=== PATIENT | male | born 1990 | race Caucasian/White ===

== ENCOUNTER 2016-07-31 12:27 | Emergency (ER) | payer OTHER ==
[~2016-07-31] VITALS: Ht 175.3 cm; Wt 88.1 kg
[2016-07-31 12:41] VITALS: BP 117/74; PULSE 68; RESP 16; O2SAT 99
--- NOTE | 2016-07-31 14:24 | ED.REPORT ---
HPI-Overdose/Alcohol Toxicity Date of Service Jul 31, 2016 ED Provider: Hakeem Loredo MD A 26 year old male with a history of substance abuse, anxiety and splenectomy in July 2015 presents to the ED seeking Suboxone detox treatment. He uses .2-.5 grams of heroin a day via injection, with his last injection occurring at 0100 today. He reports regularly using methamphetamine, the last use being a couple of days ago. He has used single non-prescribed Suboxone strips in the past with relief for 24 hours. Associated symptoms include restlessness, back pain, knee pain, anxiety, a week long cough, and goosebumps. He denies any feelings of illness, suicidal ideations, skin infections associated with injections, diaphoresis, rhinorrhea, tearing, nausea, or stomach cramps. He reports being clean in the past for a 10 month stretch. He denies a history of asthma, or diabetes. He was recently in contact with Crisis care line to seek treatment. The patient does not take prescription medication or consume alcohol. He denies marijuana or cocaine use. He does smoke. The patient spent the night at their mother's house last night, but is regularly homeless otherwise. Nursing Notes Stated Complaint: DETOX Chief Complaint: Substance Abuse Nursing Notes Reviewed: Yes Allergies: Coded Allergies: metoclopramide (Verified Allergy, Unknown, 07/31/16) prochlorperazine (Verified Allergy, Unknown, 07/31/16) Scheduled Buprenorphine HCl/Naloxone HCl (Suboxone 8 mg-2 mg Sl Film) 1 Each Film 1 EACH SL DAILY Dissolve one strip under the tongue daily. First dose tomorrow morning. General Time Seen by Provider: 14:43 Chief Complaint Other (heroin substance abuse. ) Hx Obtained From: Patient, Other family... (Grandmother) Arrived By: Walk-in Onset Occurred: 13 - 16 hours ago Severity: Current: No pain currently Pertinent Negative: Relieved by nothing Similar Sx Previous: Yes Past Medical History Past Medical History Was clean for a 10 month stretch in the past. Denies: Asthma, Diabetes mellitus Past Surgical History Splenectomy in July 2015. Social History Denies marijuana or cocaine use. Alcohol Use: Denies alcohol use Drug Use: Meth, Other (Heroin) Other Social History: Homeless Ambulatory Status Independent Review of Systems Review of Systems Note: Restlessness. Constitutional: Denies: Chills, Fever Ears / Nose / Throat: Denies: Nasal congestion GI: Denies: Nausea Musculoskeletal: Reports: Back pain, Joint pain Skin: Denies Diaphoresis Psychiatric: Reports: Anxiety, Denies: Suicidal ideation Complete sys rev & neg: except as marked. Physical Exam Initial Vital Signs Vital Signs (First) Date Time Temp Pulse Resp B/P Pulse Ox O2 Delivery O2 Flow Rate FiO2 07/31/16 12:41 36.4 68 16 117/74 99 Room Air Initial VS: Reviewed General/Constitutional: Awake, Alert COWS score=7. Respiratory / Chest: Atraumatic, Breath sounds NL, Breath sounds = bilat, No respiratory distress Cardiovascular: Heart rate NL, Regular rhythm, Heart sounds NL, No gallop, No murmurs, No rubs Abdomen: Atraumatic, No guarding, No rebound Neurologic: Oriented X3, Speech NL Psychiatric: Affect NL, Mood NL Head / Eyes: Atraumatic, Normocephalic, PERRL, EOMI Pupils normal. ENT: Atraumatic, Airway patent, Mucous membranes moist Neck: Atraumatic, Full range of motion Back: Atraumatic, Full range of motion Skin: Atraumatic, Color NL, No rash, Warm, Dry Upper Extremity / MS: Atraumatic, Full range of motion Lower Extremity / Pelvis / MS: Atraumatic, Full range of motion Re-Eval/Medical Decision Source of Hx: Old records Re-Evaluation/Progress : Time of Eval: 15:45 Re-Evaluation/Progress Note: Explained plan for discharge and prescribed medication instructions. Consultation : Call Returned at: 15:28 Automatic Teller Machine Servicer: Will see patient, Agrees with plan Note: Talked with [facility]. They agree to accept patient. Counseled Regarding: Diagnosis, Lab results, Need for follow-up, When/why to return to ED Discharge & Departure Impression: Primary Impression: Opioid use disorder, moderate, dependence Disposition: Home Discharge Condition All VS Reviewed: Yes Condition: Stable Patient Instructions: Narcotic Abuse (ED) Additional Instructions: Takes Suboxone as prescribed. Allow the strip to dissolve completely under your tongue. I recommend that you wait until tomorrow morning until you take the first dose. Follow-up at [facility] morning at 9. He do not have a specific appointment but I will be there at that time to help get you in. Do not use alcohol or benzodiazepines or any other medications including methamphetamines until that time. Referrals: [facility] (PCP) [facility] Scribe Attestation Portions of this note were transcribed by Charles Vitale and Dianne Brady. I, , personally performed the history, physical exam, and medical decision-making: I reviewed and confirmed the accuracy for the information in the transcribed note. Signed by: Charles Vitale and carmela Pickering, 07/31/16 [id number]. copies to: [facility] Hakeem Loredo MD Jul 31, 2016 14:24 Charles Vitale Jul 31, 2016 14:30 Dianne Brady Jul 31, 2016 16:53 Hakeem Loredo MD Jul 31, 2016 14:24 Charles Vitale Jul 31, 2016 14:30 Dianne Brady Jul 31, 2016 16:53
[2016-07-31] MEDS ORDERED: LORazepam 2 mg Tablet PO ONE (14:40)
[2016-07-31] MEDS ORDERED: BUPR1FIL3 SL (16:01)
== END 2016-07-31 16:15 | disposition home or self-care (01) ==
LOC: SED 12:27
DX: F11.120 Opioid abuse with intoxication, uncomplicated (principal); Z88.8 Allergy status to other drugs, medicaments and biological substances